=== PATIENT | female | born 1945 | race Caucasian/White ===

== ENCOUNTER 2023-02-18 16:16 | Observation (INO) | payer OTHER ==
[2023-02-18 18:09] LABS: HEMATOCRIT 35.5 % (32.4-45.2); HEMOGLOBIN 11.6 G/dL (10.7-15.3); MCH 29.5 pg (25.7-33.7); MCHC 32.7 g/dl (32.0-36.0); MEAN CELL VOLUME 90.1 fl (80-96); MEAN PLT VOLUME 10.6 fl (7.5-11.1); PLATELET COUNT 121.4 10^3/uL (134-434); RBC 3.94 10^6/uL (3.60-5.2); RDW 17.2 % (11.6-15.6); WHITE BLOOD COUNT 5.2 10^3/uL (4.0-10.8)
[2023-02-18 18:17] LABS: INR 1.57 (0.83-1.09); PROTHROMBIN TIME (PATIENT) 18.1 SEC (9.7-13.0)
[2023-02-18] MEDS ORDERED: ACETAMINOPHEN 500 MG TABLET (FP) PO ONE (18:19)
[2023-02-18 18:20] LABS: ACTIVATED PTT 66.8 SECONDS (25.2-36.5)
[2023-02-18] MEDS ORDERED: ACETAMINOPHEN 500 MG TABLET (FP) ONE (18:26)
[2023-02-18 18:38] LABS: PLATELET ESTIMATE ADEQUATE
[2023-02-18 18:55] LABS: ALBUMIN 4.4 g/dl (3.4-5.0); BILIRUBIN,TOTAL 0.7 mg/dl (0.2-1); BLOOD UREA NITROGEN 35.7 mg/dl (7-18); CREATININE 1.1 mg/dl (0.6-1.3); POTASSIUM 4.8 mmol/L (3.5-5.1); SGOT/AST 18.6 U/L (15-37); SGPT/ALT 10.8 U/L (7-52); TOT PROT 7.4 g/dl (6.4-8.2)
[2023-02-18] MEDS ORDERED: DOCUSATE SODIUM 100 MG CAPSULE (FP) PO PRN (20:01)
[2023-02-18] MEDS ORDERED: SODIUM CHLORIDE 1,000 ML IV SCH (20:15)
[2023-02-18 21:18] VITALS: BMI 21.5
[2023-02-18] MEDS: LACOSAMIDE 50 MG TABLET PO SCH (21:34)
[2023-02-18] MEDS: levETIRAcetam 250 MG TABLET PO SCH (21:34)
[2023-02-18] MEDS ORDERED: ROSUVASTATIN CA 20 MG TABLET PO SCH (22:00)
[2023-02-19 00:28] VITALS: RESP 18
[2023-02-19] MEDS ORDERED: ACETAMINOPHEN 1000 MG/100 ML BAG IVPB PRN (00:30)
[2023-02-19 08:39] LABS: HEMATOCRIT 28.7 % (32.4-45.2); HEMOGLOBIN 9.1 G/dL (10.7-15.3); MCH 28.5 pg (25.7-33.7); MCHC 31.8 g/dl (32.0-36.0); MEAN CELL VOLUME 89.7 fl (80-96); PLATELET COUNT 105.5 10^3/uL (134-434); RDW 16.7 % (11.6-15.6); WHITE BLOOD COUNT 4.3 10^3/uL (4.0-10.8)
[2023-02-19] MEDS: levETIRAcetam 250 MG TABLET PO SCH (09:05)
[2023-02-19] MEDS: LACOSAMIDE 50 MG TABLET PO SCH (09:05)
[2023-02-19 09:08] LABS: BLOOD UREA NITROGEN 33.3 mg/dl (7-18); CALCIUM 8.7 mg/dl (8.5-10.1); MAGNESIUM 1.7 mg/dL (1.8-2.4); PHOSPHOROUS 3.55 (2.5-4.9); POTASSIUM 4.6 mmol/L (3.5-5.1)
[2023-02-19 09:42] VITALS: BP 139/58; PULSE 63; TEMP 97.8
[2023-02-19] MEDS ORDERED: SERTRALINE HCL 25 MG TABLET (FP) PO SCH (10:00)
[2023-02-19] MEDS ORDERED: TORSEMIDE 10 MG TABLET PO SCH (10:00)
[2023-02-20] MEDS ORDERED: ACETAMINOPHEN 325 MG TABLET (FP) PO PRN (00:30)
== END 2023-02-19 13:23 | disposition home or self-care (01) ==
LOC: FER 16:16 → FM/S 18:26
PROVIDERS: ADMIT Internal Medicine; ATTEND Internal Medicine
PROC: 3E0337Z Introduction of Electrolytic and Water Balance Substance into Peripheral Vein, Percutaneous Approach (ICD-10-PCS; principal; 2023-02-18)
DX: S09.90XA Unspecified injury of head, initial encounter (principal); S50.01XA Contusion of right elbow, initial encounter; W05.0XXA Fall from non-moving wheelchair, initial encounter; Y93.89 Activity, other specified; Y92.89 Other specified places as the place of occurrence of the external cause; E78.5 Hyperlipidemia, unspecified; Z95.1 Presence of aortocoronary bypass graft; Z95.4 Presence of other heart-valve replacement; R56.9 Unspecified convulsions; E03.9 Hypothyroidism, unspecified; F03.90 Unspecified dementia, unspecified severity, without behavioral disturbance, psychotic disturbance, mood disturbance, and anxiety
CPT/HCPCS: 36415; 70450-TC; 72125-TC; 73070-TC-RT-FY; 80048; 80053; 82306; 82607; 82746; 83735; 84100; 84439; 84443; 85027; 85610; 85730; 93005; 96360; 97116-GP; 97162-GP; 99285-25; G0378

== ENCOUNTER 2023-06-05 16:40 | Inpatient (IN) | payer OTHER ==
[2023-06-05] MEDS ORDERED: VANCOMYCIN 1,000 MG in DEXTROSE 5%-WATER - 250 ML IVPB ONE (17:09)
[2023-06-05] MEDS ORDERED: CEFEPIME HCL 2 GM VIAL (RESTRICTED TO ID) IVPB ONE (17:10)
[2023-06-05] MEDS ORDERED: CEFEPIME HCL 2 GM VIAL (RESTRICTED TO ID) ONE (18:23)
[2023-06-05] MEDS ORDERED: VANCOMYCIN 1,000 MG VIAL (RESTRICTED TO ID ONLY) ONE (18:24)
[2023-06-05 18:31] LABS: HEMATOCRIT 31.5 % (32.4-45.2); HEMOGLOBIN 10.3 G/dL (10.7-15.3); MCH 28.7 pg (25.7-33.7); MCHC 32.8 g/dl (32.0-36.0); MEAN CELL VOLUME 87.7 fl (80-96); MEAN PLT VOLUME 11.1 fl (7.5-11.1); PLATELET COUNT 79.3 10^3/uL (134-434); RBC 3.59 10^6/uL (3.60-5.2); RDW 17.4 % (11.6-15.6); WHITE BLOOD COUNT 9.1 10^3/uL (4.0-10.8)
[2023-06-05 18:33] LABS: INR 1.24 (0.83-1.09); PROTHROMBIN TIME (PATIENT) 14.4 SEC (9.7-13.0)
[2023-06-05 18:35] LABS: ACTIVATED PTT 51.5 SECONDS (25.2-36.5)
[2023-06-05 18:43] LABS: ALBUMIN 3.7 g/dl (3.4-5.0); BILIRUBIN,TOTAL 0.6 mg/dl (0.2-1); CALCIUM 9.1 mg/dl (8.5-10.1); CREATININE 1.4 mg/dl (0.6-1.3); POTASSIUM 3.6 mmol/L (3.5-5.1); TOT PROT 6.7 g/dl (6.4-8.2)
[2023-06-05 18:44] LABS: EPITHELIAL CELLS 0-5 /hpf
[2023-06-05 18:48] LABS: PLATELET ESTIMATE DECREASED
[2023-06-06] MEDS ORDERED: guaiFENesin 200 MG/10 ML 10 ML UNIT-DOSE CUPS PO PRN (00:16)
[2023-06-06] MEDS: ACETAMINOPHEN 325 MG TABLET (FP) PO PRN (02:09)
[2023-06-06] MEDS: LEVOTHYROXINE NA 100 MCG TABLET (FP) PO SCH (06:18)
[2023-06-06 08:34] LABS: CALCIUM 8.9 mg/dl (8.5-10.1); CREATININE 1.5 mg/dl (0.6-1.3); POTASSIUM 3.2 mmol/L (3.5-5.1)
[2023-06-06] MEDS: LACOSAMIDE 50 MG TABLET PO SCH ×2 (09:24→21:07)
[2023-06-06] MEDS: levETIRAcetam 500 MG TABLET (FP) PO SCH ×2 (09:25→21:07)
[2023-06-06] MEDS: metoPROLOL SUCCINATE 25 MG TAB.SR.24H (FP) PO SCH (09:25)
[2023-06-06] MEDS: ASCORBIC ACID 500 MG TABLET (FP) PO SCH (09:25)
[2023-06-06] MEDS: FERROUS SO4 325 MG TABLET (FP) PO SCH (09:27)
[2023-06-06] MEDS: amLODIPine BESYLATE 2.5 MG TABLET (FP) PO SCH (09:27)
[2023-06-06] MEDS: LIDOCAINE 5% TOPICAL PATCH TP SCH (09:27)
[2023-06-06] MEDS ORDERED: TORSEMIDE 20 MG TABLET (FP) PO SCH (10:00)
[2023-06-06 10:27] LABS: BASO % 0.4 % (0-2.0); EOS % 0.1 % (0-4.5); HEMATOCRIT 27.5 % (32.4-45.2); HEMOGLOBIN 9.1 GM/dL (10.7-15.3); LYMPH % 13.1 % (8-40); MCH 28.1 pg (25.7-33.7); MCHC 33.1 g/dl (32.0-36.0); MEAN CELL VOLUME 84.9 fl (80-96); MONO % 5.7 % (3.8-10.2); NEUT % 80.7 % (42.8-82.8); PLATELET COUNT 75 10^3/uL (134-434); RBC 3.24 M/mm3 (3.60-5.2); WHITE BLOOD COUNT 7.9 K/mm3 (4.0-10.0)
[2023-06-06] MEDS ORDERED: POTASSIUM CHLORIDE ORAL LIQUID 20 MEQ/15 ML PO ONE (10:54)
[2023-06-06] MEDS ORDERED: ALBUTEROL SO4 2.5/IPRATROPIUM 0.5 INH SOL 3 ML VIAL.NEB. NEB PRN (10:55)
[2023-06-06] MEDS ORDERED: FUROSEMIDE 40 MG/4 ML INJECTABLE VIAL IVPUSH SCH ×2 (11:00→12:30)
[2023-06-06] MEDS: CEFTRIAXONE 1 GM in DEXTROSE 5%-WATER - 50 ML IVPB SCH (18:06)
[2023-06-06] MEDS: ROSUVASTATIN CA 10 MG TABLET PO SCH (21:07)
[2023-06-06] MEDS: LIDOCAINE PATCH REMOVAL MC SCH (21:07)
[2023-06-06] MEDS ORDERED: ROSUVASTATIN CA 40 MG TABLET PO SCH (22:00)
[2023-06-06] MEDS ORDERED: SERTRALINE HCL 25 MG TABLET (FP) PO SCH (22:00)
[2023-06-07] MEDS: LEVOTHYROXINE NA 100 MCG TABLET (FP) PO SCH (06:13)
[2023-06-07 08:54] LABS: BILIRUBIN,TOTAL 0.4 mg/dl (0.2-1); CALCIUM 8.9 mg/dl (8.5-10.1); CREATININE 1.9 mg/dl (0.6-1.3); POTASSIUM 3.6 mmol/L (3.5-5.1); TOT PROT 5.4 g/dl (6.4-8.2)
[2023-06-07] MEDS: levETIRAcetam 500 MG TABLET (FP) PO SCH ×2 (09:54→21:55)
[2023-06-07] MEDS: FERROUS SO4 325 MG TABLET (FP) PO SCH (09:54)
[2023-06-07] MEDS: ASCORBIC ACID 500 MG TABLET (FP) PO SCH (09:54)
[2023-06-07] MEDS: LACOSAMIDE 50 MG TABLET PO SCH ×2 (09:54→21:56)
[2023-06-07] MEDS: LIDOCAINE 5% TOPICAL PATCH TP SCH (09:55)
[2023-06-07] MEDS: CEFTRIAXONE 1 GM in DEXTROSE 5%-WATER - 50 ML IVPB SCH (09:55)
[2023-06-07] MEDS: amLODIPine BESYLATE 2.5 MG TABLET (FP) PO SCH (09:56)
[2023-06-07] MEDS: metoPROLOL SUCCINATE 25 MG TAB.SR.24H (FP) PO SCH (09:56)
[2023-06-07] MEDS ORDERED: FUROSEMIDE 40 MG/4 ML INJECTABLE VIAL IVPUSH SCH (10:00)
[2023-06-07 11:32] LABS: BASO % 0.4 % (0-2.0); EOS % 0.2 % (0-4.5); HEMATOCRIT 26.3 % (32.4-45.2); HEMOGLOBIN 8.5 GM/dL (10.7-15.3); LYMPH % 13.7 % (8-40); MCH 27.3 pg (25.7-33.7); MCHC 32.4 g/dl (32.0-36.0); MEAN CELL VOLUME 84.5 fl (80-96); MONO % 5.6 % (3.8-10.2); NEUT % 80.1 % (42.8-82.8); PLATELET COUNT 70 10^3/uL (134-434); RBC 3.11 M/mm3 (3.60-5.2); WHITE BLOOD COUNT 5.3 K/mm3 (4.0-10.0)
[2023-06-07 15:49] VITALS: BMI 20.2
[2023-06-07] MEDS: ACETAMINOPHEN 325 MG TABLET (FP) PO PRN (21:55)
[2023-06-07] MEDS: ROSUVASTATIN CA 10 MG TABLET PO SCH (21:55)
[2023-06-07] MEDS: LIDOCAINE PATCH REMOVAL MC SCH (21:56)
[2023-06-08 08:16] LABS: HEMATOCRIT 30.2 % (32.4-45.2); HEMOGLOBIN 9.5 G/dL (10.7-15.3); MCH 27.5 pg (25.7-33.7); MCHC 31.5 g/dl (32.0-36.0); MEAN CELL VOLUME 87.2 fl (80-96); PLATELET COUNT 78.9 10^3/uL (134-434); RBC 3.46 10^6/uL (3.60-5.2); RDW 17.1 % (11.6-15.6); WHITE BLOOD COUNT 4.7 10^3/uL (4.0-10.8)
[2023-06-08 08:53] LABS: ALBUMIN 3.4 g/dl (3.4-5.0); BILIRUBIN,TOTAL 0.4 mg/dl (0.2-1); CALCIUM 9.4 mg/dl (8.5-10.1); CREATININE 1.8 mg/dl (0.6-1.3); POTASSIUM 3.6 mmol/L (3.5-5.1); TOT PROT 6.1 g/dl (6.4-8.2)
[2023-06-08] MEDS: amLODIPine BESYLATE 2.5 MG TABLET (FP) PO SCH (09:23)
[2023-06-08] MEDS: CEFTRIAXONE 1 GM in DEXTROSE 5%-WATER - 50 ML IVPB SCH (09:23)
[2023-06-08] MEDS: LACOSAMIDE 50 MG TABLET PO SCH ×2 (09:24→21:30)
[2023-06-08] MEDS: metoPROLOL SUCCINATE 25 MG TAB.SR.24H (FP) PO SCH (09:24)
[2023-06-08] MEDS: ASCORBIC ACID 500 MG TABLET (FP) PO SCH (09:25)
[2023-06-08] MEDS: FERROUS SO4 325 MG TABLET (FP) PO SCH (09:25)
[2023-06-08] MEDS: levETIRAcetam 500 MG TABLET (FP) PO SCH ×2 (09:25→21:30)
[2023-06-08 13:11] LABS: PLATELET ESTIMATE DECREASED
[2023-06-08] MEDS: LIDOCAINE 5% TOPICAL PATCH TP SCH (16:08)
[2023-06-08] MEDS: ROSUVASTATIN CA 10 MG TABLET PO SCH (21:30)
[2023-06-08] MEDS: ACETAMINOPHEN 325 MG TABLET (FP) PO PRN (21:31)
[2023-06-08] MEDS: LIDOCAINE PATCH REMOVAL MC SCH (21:32)
[2023-06-09] MEDS: ASCORBIC ACID 500 MG TABLET (FP) PO SCH (09:24)
[2023-06-09] MEDS: LACOSAMIDE 50 MG TABLET PO SCH ×2 (09:24→21:18)
[2023-06-09] MEDS: amLODIPine BESYLATE 2.5 MG TABLET (FP) PO SCH (09:25)
[2023-06-09] MEDS: levETIRAcetam 500 MG TABLET (FP) PO SCH ×2 (09:25→21:19)
[2023-06-09] MEDS: metoPROLOL SUCCINATE 25 MG TAB.SR.24H (FP) PO SCH (09:26)
[2023-06-09] MEDS: ACETAMINOPHEN 325 MG TABLET (FP) PO PRN ×2 (09:27→21:18)
[2023-06-09] MEDS: CEFTRIAXONE 1 GM in DEXTROSE 5%-WATER - 50 ML IVPB SCH (09:30)
[2023-06-09 10:36] LABS: ALBUMIN 3.2 g/dl (3.4-5.0); BILIRUBIN,TOTAL 0.4 mg/dl (0.2-1); CALCIUM 9.3 mg/dl (8.5-10.1); CREATININE 1.5 mg/dl (0.6-1.3); POTASSIUM 3.3 mmol/L (3.5-5.1)
[2023-06-09 11:02] LABS: BASO % 0.2 % (0-2.0); EOS % 0.8 % (0-4.5); HEMATOCRIT 27.4 % (32.4-45.2); HEMOGLOBIN 8.9 GM/dL (10.7-15.3); LYMPH % 26.8 % (8-40); MCH 27.3 pg (25.7-33.7); MCHC 32.4 g/dl (32.0-36.0); MEAN CELL VOLUME 84.3 fl (80-96); MEAN PLT VOLUME 9.7 fl (7.5-11.1); MONO % 7.1 % (3.8-10.2); NEUT % 65.1 % (42.8-82.8); PLATELET COUNT 81 10^3/uL (134-434); RBC 3.25 M/mm3 (3.60-5.2); WHITE BLOOD COUNT 4.5 K/mm3 (4.0-10.0)
[2023-06-09] MEDS ORDERED: POTASSIUM CHLORIDE ORAL LIQUID 20 MEQ/15 ML PO ONE (15:18)
[2023-06-09] MEDS: FERROUS SO4 325 MG TABLET (FP) PO SCH (16:43)
[2023-06-09] MEDS: LIDOCAINE 5% TOPICAL PATCH TP SCH (16:44)
[2023-06-09 18:56] VITALS: RESP 18
[2023-06-09] MEDS: ROSUVASTATIN CA 10 MG TABLET PO SCH (21:19)
[2023-06-09] MEDS: LIDOCAINE PATCH REMOVAL MC SCH (21:19)
[2023-06-10] MEDS ORDERED: ALENDRONATE SODIUM PO SCH (07:00)
[2023-06-10 08:35] LABS: ALBUMIN 3.2 g/dl (3.4-5.0); BILIRUBIN,TOTAL 0.3 mg/dl (0.2-1); CALCIUM 9.4 mg/dl (8.5-10.1); CREATININE 1.3 mg/dl (0.6-1.3); POTASSIUM 3.8 mmol/L (3.5-5.1); TOT PROT 5.9 g/dl (6.4-8.2)
[2023-06-10 09:09] LABS: BASO % 0.4 % (0-2.0); HEMATOCRIT 27.4 % (32.4-45.2); HEMOGLOBIN 8.8 GM/dL (10.7-15.3); LYMPH % 21.8 % (8-40); MCH 27.7 pg (25.7-33.7); MCHC 32.2 g/dl (32.0-36.0); MEAN CELL VOLUME 86.1 fl (80-96); MEAN PLT VOLUME 9.8 fl (7.5-11.1); MONO % 7.3 % (3.8-10.2); NEUT % 69.5 % (42.8-82.8); PLATELET COUNT 79 10^3/uL (134-434); RBC 3.18 M/mm3 (3.60-5.2); RDW 15.6 % (11.6-15.6); WHITE BLOOD COUNT 5.9 K/mm3 (4.0-10.0)
[2023-06-10] MEDS: LACOSAMIDE 50 MG TABLET PO SCH (09:27)
[2023-06-10] MEDS: LIDOCAINE 5% TOPICAL PATCH TP SCH (09:27)
[2023-06-10] MEDS: CEFTRIAXONE 1 GM in DEXTROSE 5%-WATER - 50 ML IVPB SCH (09:27)
[2023-06-10] MEDS: metoPROLOL SUCCINATE 25 MG TAB.SR.24H (FP) PO SCH (09:28)
[2023-06-10] MEDS: amLODIPine BESYLATE 2.5 MG TABLET (FP) PO SCH (09:28)
[2023-06-10] MEDS: FERROUS SO4 325 MG TABLET (FP) PO SCH (09:28)
[2023-06-10] MEDS: ASCORBIC ACID 500 MG TABLET (FP) PO SCH (09:28)
[2023-06-10] MEDS: levETIRAcetam 500 MG TABLET (FP) PO SCH (09:28)
[2023-06-10 14:27] VITALS: BP 120/56; PULSE 55; TEMP 97.8
== END 2023-06-10 14:42 | DRG 291 ==
LOC: FER 16:40 → FM/S 22:25
PROVIDERS: ADMIT Internal Medicine
DX: I11.0 Hypertensive heart disease with heart failure (principal); I50.33 Acute on chronic diastolic (congestive) heart failure; J18.9 Pneumonia, unspecified organism; N17.9 Acute kidney failure, unspecified; F03.90 Unspecified dementia, unspecified severity, without behavioral disturbance, psychotic disturbance, mood disturbance, and anxiety; E03.9 Hypothyroidism, unspecified; E78.5 Hyperlipidemia, unspecified
CPT/HCPCS: 0241U-QW; 36415; 71045-TC-FY; 76775-TC; 80048; 80053; 81003; 81015; 83880; 84439; 84443; 84484; 85025; 85027; 85610; 85730; 86850; 86900; 86901; 87040; 87086; 87186; 93005; 93306-TC; 97116-GP; 97162-GP; 99285-25